=== PATIENT | female | born 1930 | race Caucasian/White ===

== ENCOUNTER 2017-09-20 12:32 | Outpatient (CLI) | payer MEDICARE ==
[~2017-09-20] VITALS: Ht 152.4 cm; Wt 71.8 kg
[2017-09-20] MEDS ORDERED: OMEP40CA36 PO (12:44)
[2017-09-20] MEDS ORDERED: FEXO180T84 PO (12:44)
[2017-09-20] MEDS ORDERED: C250T PO (12:44)
[2017-09-20] MEDS ORDERED: VITA1CAP PO (12:44)
[2017-09-20] MEDS ORDERED: CALC-140 PO (12:44)
[2017-09-20 12:48] VITALS: BP 138/78
== END 2017-09-20 13:32 | disposition home or self-care (01) ==
LOC: PREOP 12:32
PROVIDERS: ATTEND Podiatrist Foot & Ankle Surgery
DX: Z01.818 Encounter for other preprocedural examination (principal); M20.22 Hallux rigidus, left foot; M20.42 Other hammer toe(s) (acquired), left foot
CPT/HCPCS: 87081

== ENCOUNTER 2017-10-01 07:55 | Day surgery (SDC) | payer MEDICARE ==
[~2017-10-01] VITALS: Ht 152.4 cm; Wt 71.8 kg
[~2017-10-01 07:55] MED LIST: C250T PO; CALC-140 PO; FEXO180T84 PO; OMEP40CA36 PO; VITA1CAP PO
[2017-10-01 08:00] VITALS: BP 160/80
--- OUTSIDE RECORDS SUMMARY | 2017-10-01 08:02 | XMS REPORT ---
Author Author ANJANA DYSON Organization [employer] Address Unknown Phone Unavailable Care Team Providers Care Management Analyst Name Role Phone ANJANA DYSON CP Unavailable Allergies, Adverse Reactions, Alerts Substance Reaction Event Type Penicillin V Potassium Info Not Available Drug Allergy tape Info Not Available Non Drug Allergy Problems Problem Type Condition Code Onset Dates Condition Status Assessment Dental examination Z01.20 Active Medications Medication Code System Code Instructions Start Date End Date Status Dosage Meloxicam NDC [address]-03 not defined Andressa NDC 0 not defined Prilosec [facility] [address]-55 not defined Procedures Procedure Coding System Code Date BITEWINGS - FOUR FILMS CPT-4 D0274 Oct 07, 2015 PANORAMIC FILM SEE ALSO CODE 04964 CPT-4 D0330 Oct 07, 2015 COMP ORAL EVALUATION - NEW/EST PT CPT-4 D0150 Oct 07, 2015 Billing Notes on claim CPT-4 EC109 Oct 07, 2015 PROPHYLAXIS - ADULT CPT-4 D1110 Oct 07, 2015 Vital Signs Date/Time: Oct 07, 2015 Blood Pressure Diastolic 63 mmHg Blood Pressure Systolic 113 mmHg Results No Known Results Summary Purpose [employer] Submission
--- OUTSIDE RECORDS SUMMARY | 2017-10-01 08:02 | XMS REPORT | Continuity of Care Document ---
Demographics x Preferred Language Unknown Marital Status Unknown Evangelical Affiliation Unknown Race Unknown Ethnic Group Unknown Author Author [facility] Organization [facility] Address Unknown Phone Unavailable Allergies Medications Problems Procedures Results Encounters ACCT No. Visit Date/Time Discharge Status Pt. Type Provider Facility Loc./Unit Complaint [id number] 02/12/2014 08:46:00 02/12/2014 08 :46:00 DIS Outpatient MEHRDAD RIGGS [facility] RAD [id number] 01/01/2014 08:42:00 01/01/2014 08 :42:00 DIS Outpatient MEHRDAD RIGGS [facility] RAD
[2017-10-01] MEDS: LACTATED RINGERS 1,000 ML IV PRN ×2 (08:15→11:00)
[2017-10-01] MEDS ORDERED: ceFAZolin 1 GM/NS 50 ML IVPB IV ONE ×2 (08:45)
[2017-10-01] MEDS ORDERED: FAMOTIDINE 20MG/2ML IV (PEPCID) IV ONE (09:00)
[2017-10-01] MEDS ORDERED: ONDANSETRON 4 MG/2 ML (SDV) Z0FRAN IV ONE (09:00)
[2017-10-01] MEDS ORDERED: BUPIVACAINE 0.5% 30 ML (SENSORCAINE) VIAL ONE (09:43)
[2017-10-01] MEDS ORDERED: DEXAMETHASONE 10 MG/ML (DECADRON) 1 ML VIAL ONE ×2 (09:43→10:08)
[2017-10-01] MEDS ORDERED: LIDOCAINE 1% INJ 20 ML (XYLOCAINE) VIAL ONE (09:43)
[2017-10-01] MEDS ORDERED: proPOfol 200 MG/20 ML (DIPRIVAN) VIAL IV ONE (10:08)
[2017-10-01] MEDS ORDERED: fentaNYL INJECTION 100 MCG/2 ML AMP ONE (10:08)
[2017-10-01] MEDS ORDERED: ONDANSETRON 4 MG/2 ML (SDV) Z0FRAN ONE (10:08)
[2017-10-01] MEDS ORDERED: SEVOFLURANE (ULTANE) 15 ML INHAL SOLN ONE ×2 (10:08→12:41)
[2017-10-01] MEDS ORDERED: LIDOCAINE PF 2% 5 ML (XYLOCAINE) VIAL ONE (10:08)
--- NOTE | 2017-10-01 10:39 | Progress Note-Pre Operative ---
Pre-Operative Progress Note H&P Reviewed The H&P was reviewed, patient examined and no changes noted. 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
[2017-10-01] MEDS ORDERED: LACTATED RINGERS 1,000 ML IV SCH (12:59)
--- NOTE | 2017-10-01 12:59 | Progress Note-Post Operative ---
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
[2017-10-01] MEDS ORDERED: HYDROcodone/APAP 5 MG/325 MG (LORTAB) TAB PO PRN (13:00)
[2017-10-01] MEDS ORDERED: ONDANSETRON 4 MG/2 ML (SDV) Z0FRAN IVP PRN ×2 (13:00→13:15)
[2017-10-01] MEDS ORDERED: HYDR-3812 PO (13:03)
[2017-10-01] MEDS ORDERED: CEPH500C PO (13:03)
[2017-10-01] MEDS ORDERED: morphine INJ 10 MG/ML 1ML (SYR OR VIAL) IVP PRN (13:15)
[2017-10-01 14:00] VITALS: BP 131/70
[2017-10-01 14:30] VITALS: BP 152/67
--- NOTE | 2017-10-01 18:54 | OPERATIVE REPORT ---
DATE OF SERVICE: PREOPERATIVE DIAGNOSES: 1. Hallux abductovalgus metatarsal primus varus, left. 2. Hammer digit syndrome, left second. 3. Hypertrophic second metatarsal, left. POSTOPERATIVE DIAGNOSES: 1. Hallux abductovalgus metatarsal primus varus, left. 2. Hammer digit syndrome, left second. 3. Hypertrophic second metatarsal, left. PROCEDURES PERFORMED: 1. Modified Jey-Rohan bunionectomy, left. 2. Reduction of hammertoe with flexor tendon transfer, left second digit. 3. Second metatarsal osteotomy, left. SURGEON: Alana Perez DPM. WOUND CLASS: Clean. ANESTHESIA: General. HEMOSTASIS: Pneumatic thigh tourniquet at 250 mmHg. INDICATION: This 87-year-old female presents complaining of a painful left foot. Conservative therapy has met with unsatisfactory results and the patient is agreeable to surgical intervention. The risks and complications were discussed at length. No guarantees were extended to the patient and she is willing to proceed. DESCRIPTION OF PROCEDURE: The patient was brought back to the operative table, placed in secure supine position. General anesthetic was then induced. Appropriate timeout was performed. Pneumatic thigh tourniquet was placed on the left lower extremity over several layers of padding. The left foot was then prepped and draped in normal sterile manner. The left foot was then elevated and allowed to exsanguinate after which the tourniquet was inflated to 250 mmHg. Attention was then directed to the dorsal aspect of the left first metatarsophalangeal joint, where a 6 cm longitudinal linear incision was created. The incision was deepened in same plane with great care to identify and retract all vital neurovascular structures. When necessary, blood vessels were cauterized as encountered. The incision was deepened down the capsule where a longitudinal capsulotomy was performed. This exposed the hypertrophic medial eminence to the first metatarsal head, which was resected utilizing a power sagittal saw. Next, a lateral release was performed. This was done with a release of the conjoint tendon of the adductor hallucis, a lateral capsulorrhaphy and release of the fibular sesamoidal ligament. Attention was then directed to the medial aspect of the first metatarsal head, where a Chevron-type osteotomy was performed. The capital fragment was translocated laterally and fixated in its corrected position. We utilized an 0.062 threaded K-wire from proximal dorsal to plantar distal across the osteotomy with great care not to penetrate the articular cartilage. The head was further contoured smooth utilizing a power sagittal saw and power bur. Excellent bony apposition fixation was noted at this time to the first metatarsal osteotomy. Attention was then directed to the hallux, where an Rohan type procedure was performed. Subperiosteal dissection was carried out after which a wedge bone was resected with the base medial and the lateral cortices held intact. Two airplane pilot crop dusting holes were created at the dorsal medial aspect of the osteotomy after which 28-gauge monofilament wire was passed through the airplane pilot crop dusting hole securing the osteotomy in a closed position. Excellent bony apposition and fixation was appreciated at this time. The wound was flushed with copious amounts of normal saline throughout the procedure and closure was then performed in layers. Deep closure was performed with 3-0 Vicryl, superficial with 4-0 Vicryl, skin closure with 4-0 Prolene in a horizontal mattress type stitch. Attention was then directed to the dorsal aspect of the left second ray, where a 5 cm longitudinal linear incision was created from the metatarsal head to the distal interphalangeal joint of the second toe. The incision was deepened in the same plane with great care to identify and retract all vital neurovascular structures. All the necessary blood vessels were cauterized as encountered. The incision was deepened down to the extensor tendon where a Z-slide lengthening was performed overlying the proximal phalanx. The extensor tendon was reflected proximally and distally after which the extensor whyte was released overlying the metatarsal phalangeal joint. The medial lateral collateral ligaments were released as well as a dorsal capsulorrhaphy of the second metatarsophalangeal joint. Next, a Anita-type osteotomy was performed. The capital fragment was translocated proximally and medially and was fixated in its corrected position utilizing a 2.0 snap-off screw with 12 mm of length. Excellent bony apposition fixation was appreciated at this time. The excess bone to the second metatarsal head was further contoured and smooth with a rongeur. The wound was flushed with copious amounts of normal saline. Attention was then directed to the left second toe, where the proximal interphalangeal joint was evaluated. The medial and lateral collateral ligaments were released. Utilizing power sagittal saw and a power bur, the head of the proximal phalanx was fashioned into a peg and a hole was created to the base of the middle phalanx with a power bur for the peg-in-hole type arthrodesis. Next, the flexor digitorum longus at the proximal interphalangeal joint was incised and transferred to the lateral aspect of the base of the proximal phalanx. A hole was created from dorsal to plantar at the base of the proximal phalanx for the tendon transfer. The tendon was then fed from plantar to dorsal through this hole and split into a medial lateral sections and sutured with 3-0 Vicryl into the soft tissue around what was the proximal interphalangeal joint. A 0.054 K wire was driven throughout the toe securing the digit in rectus alignment as well as fixation for the flexor tendon transfer. The digit was placed in physiological tension for the flexor tendon transfer. The excess K wire at the end of the toe was cut and a protective ball placed over the end of the wire. There wound was flushed with copious amounts of normal saline and closure was performed in layers. Deep closure was performed with 3-0 Vicryl, superficial with 4-0 Vicryl, and skin closure with 4-0 Prolene in a horizontal mattress type stitch. Postoperative injection consisted of 20 mL of 0.5% Marcaine injected in a local infusion to the surgical site. Postoperative dressing consisted of Betadine-soaked Adaptic, sterile 4 x 4, sterile Kerlix, all secured with a Coban wrap. Tourniquet was released noting appropriate cap refill time for all digits of the left foot. The patient tolerated the anesthesia and procedure well and was transported from the operating room to the recovery area with vital signs stable and vascular status intact to all digits of the left foot. The patient is to follow up in my office in 10 days' period of time or sooner if necessary. Job ID: [id number] DocumentID: [id number] Dictated Date: 10/01/2017 13:13:48 Senior Reservations Agent Date: 10/01/2017 18:54:16 Dictated By: ALANA PEREZ DPM
--- NOTE | 2017-10-01 21:53 | Diagnostic Imaging Report ---
INDICATION: Left foot pain Two views of the left foot show postop changes from osteotomies of the proximal phalanx of the big toe. There is a surgical pin in the first metatarsal. There is a small wire band in the proximal phalanx of the big toe. There is a pin in the second toe traversing all 3 phalanges. There is a screw in the head of the second metatarsal. IMPRESSION: Postop changes from bunion repair of the left foot. Bones appear to be in good alignment. Dictated by: Dictated on workstation # [id number]
== END 2017-10-01 15:20 | disposition home or self-care (01) ==
LOC: SDC 07:55
PROVIDERS: ATTEND Podiatrist Foot & Ankle Surgery
DX: M20.12 Hallux valgus (acquired), left foot (principal); M20.42 Other hammer toe(s) (acquired), left foot; M89.372 Hypertrophy of bone, left ankle and foot; M35.00 Sjogren syndrome, unspecified; H40.9 Unspecified glaucoma; Z79.899 Other long term (current) drug therapy; K21.9 Gastro-esophageal reflux disease without esophagitis; G62.9 Polyneuropathy, unspecified; J30.2 Other seasonal allergic rhinitis; Z88.0 Allergy status to penicillin
CPT/HCPCS: 73620